=== PATIENT | female | born 1995 | race Caucasian/White ===

== ENCOUNTER 2018-07-22 10:34 | Outpatient (CLI) | payer BC ==
--- NOTE | 2018-07-22 11:40 | RAD ---
RIGHT FOOT 3 VIEWS: Date: 07/22/18 CLINICAL HISTORY: Foot pain after stepping wrong. Foot pain is more medial. FINDINGS: There are no signs of fracture or dislocation. IMPRESSION: Negative right foot. POS: TREVER
== END 2018-07-22 10:35 | disposition home or self-care (01) ==
LOC: SCSRAD 10:34
PROVIDERS: ATTEND Family Medicine
DX: M79.671 Pain in right foot (principal)

== ENCOUNTER 2018-09-14 23:21 | Inpatient (IN) | payer BC ==
[2018-09-14] MEDS ORDERED: cefTRIAXone\\ROCEPHIN 1 GM VIAL ONE (23:56)
[2018-09-15 00:19] LABS: Band 32 % (5-11); Hemoglobin 12.4 g/dL (12.0-16.0); Lymphocytes 3 % (21-51); MDiff Complete? YES; Mean Corpuscular HGB CONC 33.5 g/dL (32.0-36.0); Mean Corpuscular Hemoglobin 27.8 pg (27.0-31.0); Mean Platelet Volume 7.7 fL (7.4-10.4); Monocytes 5 % (0-10); Neutrophil 60 % (42-75); Platelet Count 227 thou/uL (130-400); Platelet Morphology Comment Appears Adequate; RBC Distribution Width 12.9 % (11.5-14.5); Red Blood Cell (RBC) Count 4.47 mill/uL (4.20-5.40); White Blood Cell (WBC) Count 18.9 thou/uL (4.8-10.8)
[2018-09-15 00:37] LABS: ALT (SGPT) 26 U/L (8-55); AST (SGOT) 18 U/L (5-34); Albumin 3.4 g/dL (3.5-5.0); Alkaline Phosphatase 166 U/L (40-150); Anion Gap 14 mmol/L (10-20); BUN (Urea Nitrogen) 11 mg/dL (7.0-18.7); Bilirubin, Total 1.1 mg/dL (0.2-1.2); Calc. Creatinine Clearance 0 mL/min (70-130); Calcium 9.2 mg/dL (7.8-10.44); Carbon Dioxide 21 mmol/L (22-29); Chloride 105 mmol/L (98-107); Estimated GFR-MDRD 89; Globulin 3.6 g/dL (2.4-3.5); Glucose 132 mg/dL (70-105); Potassium 3.2 mmol/L (3.5-5.1); Sodium 137 mmol/L (136-145)
[2018-09-15] MEDS ORDERED: Ketorolac Tromethamine 30 MG/ML VIAL ONE ×2 (00:50→14:34)
[2018-09-15 01:08] LABS: Bilirubin Small (Negative); Blood, Urine Large (Negative); Clarity CLEAR (Clear); Glucose, Urine (Dipstick) Negative (Negative); Leukocyte Small (Negative); Nitrite Negative (Negative); Protein, Urine (Dipstick) 100 mg/dL (Neg-Trace); Specific Gravity, Urine 1.031 (1.002-1.036)
[2018-09-15 01:09] LABS: Bacteria/HPF None Seen HPF (None Seen); Hyaline Casts/LPF 7-10 HYALINE CAST LPF (0-3 Hyaline); Pathc Cast-AUWi Flag 2.04 (0-2.49)
[2018-09-15 01:10] LABS: Oval Fat Bodies/HPF None Seen HPF (None Seen); Renal Epithelial None Seen HPF (0-3); Sperm/HPF None Seen HPF (None Seen); Transitional Epithelial NONE SEEN HPF (0-3); Trichomonas/HPF None Seen HPF (None Seen); Yeast-All Forms None Seen HPF (None Seen)
[2018-09-15] MEDS ORDERED: Ondansetron PF 4 MG/2 ML Vial IVP PRN ×2 (03:06→13:47)
[2018-09-15] MEDS ORDERED: Sodium Chloride 0.45% 1,000 ML IV SCH ×2 (03:06→07:53)
[2018-09-15] MEDS ORDERED: Ondansetron ODT 4 MG TAB SL PRN (03:06)
[2018-09-15] MEDS ORDERED: Morphine 4 MG/ML VIAL SLOW IVP PRN ×2 (03:10→13:47)
[2018-09-15 03:42] VITALS: BMI 47.5
[2018-09-15] MEDS ORDERED: Vancomycin HCl 1.5 GM in Sodium Chloride 0.9% 250 ML 300 ML IVPB SCH (09:00)
[2018-09-15] MEDS ORDERED: Vancomycin HCl 1 GM in Premix Bag 1 BAG IVPB SCH (09:00)
[2018-09-15] MEDS ORDERED: Fentanyl 100 MCG/2 ML VIAL ONE ×3 (10:20→12:08)
[2018-09-15] MEDS ORDERED: cefTRIAXone\\ROCEPHIN 1 GM in Sodium Chloride 0.9% 100 ML IVPB SCH (12:00)
[2018-09-15] MEDS ORDERED: Non-Formulary Medication 1 EACH PO PRN (13:37)
[2018-09-15] MEDS ORDERED: Ondansetron HCl/PF 4 MG/2 ML Vial IVP PRN (13:37)
[2018-09-15] MEDS ORDERED: Promethazine HCl 25 MG/ML VIAL IM/IV PRN (13:37)
[2018-09-15] MEDS ORDERED: Promethazine HCl 25 MG/ML VIAL IM PRN (13:47)
[2018-09-15] MEDS ORDERED: Dextrose 5% in Water 1,000 ML IV PRN (13:47)
[2018-09-15] MEDS ORDERED: Dextrose 50% Abboject 50 ML SYRINGE SLOW IVP PRN (13:47)
[2018-09-15] MEDS ORDERED: hydrALAZINE 20 MG/ML VIAL SLOW IVP PRN (13:47)
[2018-09-15] MEDS ORDERED: Piperacillin/Tazobactam 3.375 GM in Sodium Chloride 0.9% 100 ML IVPB SCH (14:00)
[2018-09-15] MEDS ORDERED: PROPOFOL 200 MG/20 ML VIAL ONE (14:34)
[2018-09-15] MEDS ORDERED: Lidocaine 1% PF 5 ML VIAL ONE (14:34)
[2018-09-15] MEDS: Vancomycin HCl 1.25 GM in Sodium Chloride 0.9% 250 ML 250 ML IVPB SCH (18:22)
[2018-09-15] MEDS: Famotidine/PF 20 mg/2ml Vial SLOW IVP SCH (21:00)
[2018-09-15] MEDS: Famotidine 20 MG TAB PO SCH (21:10)
[2018-09-15] MEDS: Escitalopram Oxalate 20 mg Tablet PO SCH (21:10)
[2018-09-15] MEDS: Piperacillin/Tazobactam 3.375 GM in Sodium Chloride 0.9% 100 ML IVPB SCH (22:37)
[2018-09-16] MEDS: Vancomycin HCl 1.25 GM in Sodium Chloride 0.9% 250 ML 250 ML IVPB SCH ×2 (02:56→13:04)
[2018-09-16] MEDS: Levothyroxine Sodium 50 MCG TAB PO SCH (05:09)
[2018-09-16] MEDS: Piperacillin/Tazobactam 3.375 GM in Sodium Chloride 0.9% 100 ML IVPB SCH ×4 (05:39→23:36)
[2018-09-16] MEDS: Famotidine 20 MG TAB PO SCH ×2 (08:02→20:35)
[2018-09-16] MEDS: Montelukast Sodium 10 mg Tablet PO SCH (08:04)
[2018-09-16 10:19] LABS: Anion Gap 11 mmol/L (10-20); BUN (Urea Nitrogen) 16 mg/dL (7.0-18.7); Calc. Creatinine Clearance 160 mL/min (70-130); Calcium 8.3 mg/dL (7.8-10.44); Carbon Dioxide 22 mmol/L (22-29); Chloride 108 mmol/L (98-107); Estimated GFR-MDRD 60; Glucose 107 mg/dL (70-105); Potassium 3.2 mmol/L (3.5-5.1); Sodium 138 mmol/L (136-145)
[2018-09-16 10:25] LABS: Vancomycin, Trough 25.6 ug/mL
[2018-09-16] MEDS: Famotidine/PF 20 mg/2ml Vial SLOW IVP SCH ×2 (10:28→19:38)
--- NOTE | 2018-09-16 11:06 | PDOC.GSPN ---
Surgery Progress Note: Subj - Subjective Patient reports: no new complaints Surgery Progress Note: Obj - Vital signs Vital signs: Vital Signs - Most Recent Temp Pulse Resp BP Pulse Ox 98.7 F 78 20 119/68 97 09/16/18 07:46 09/16/18 07:46 09/16/18 07:46 09/16/18 07:46 09/16/18 07:46 - Physical Exam General: no distress Cardiovascular: regular rate and rhythm Respiratory: clear to auscultation Wound: wound vac Surgery Progress Note: Results - Labs Result Diagrams: 09/14/18 23:51 09/16/18 09:42 Lab results: Laboratory Results - last 24 hr 09/16/18 09/16/18 09:42 09:42 Sodium 138 Potassium 3.2 L Chloride 108 H Carbon Dioxide 22 Anion Gap 11 BUN 16 Creatinine 1.14 H Estimated GFR (MDRD) 60 Glucose 107 H Calcium 8.3 Vancomycin Trough 25.6 Surgery Progress Note: A/P - Problem (1) Necrotizing cellulitis Current Visit: Yes Code(s): L03.90 - CELLULITIS, UNSPECIFIED Status: Acute Assessment and Plan: Arrange Home vac -vac change tomorrow
[2018-09-16 11:19] LABS: Band 20 % (5-11); Hemoglobin 10.4 g/dL (12.0-16.0); Lymphocytes 9 % (21-51); MDiff Complete? YES; Mean Corpuscular HGB CONC 32.7 g/dL (32.0-36.0); Mean Corpuscular Hemoglobin 27.2 pg (27.0-31.0); Mean Corpuscular Volume 83.1 fL (78.0-98.0); Mean Platelet Volume 7.9 fL (7.4-10.4); Monocytes 5 % (0-10); Neutrophil 66 % (42-75); Platelet Count 216 thou/uL (130-400); Polychromasia SLIGHT = 2-3 cells (100X) (0-2/hpf); RBC Distribution Width 13.3 % (11.5-14.5); Red Blood Cell (RBC) Count 3.84 mill/uL (4.20-5.40); White Blood Cell (WBC) Count 9.4 thou/uL (4.8-10.8)
[2018-09-16] MEDS: Vancomycin HCl 1.5 GM in Sodium Chloride 0.9% 250 ML 300 ML IVPB SCH (20:34)
[2018-09-16] MEDS: Escitalopram Oxalate 20 mg Tablet PO SCH (20:35)
[2018-09-16] MEDS: HYDROcodone/Acetaminophen 7.5/325 mg Tablet PO PRN (22:53)
[2018-09-17] MEDS: Piperacillin/Tazobactam 3.375 GM in Sodium Chloride 0.9% 100 ML IVPB SCH (05:40)
[2018-09-17] MEDS: Levothyroxine Sodium 50 MCG TAB PO SCH (05:40)
[2018-09-17 06:29] LABS: Anion Gap 10 mmol/L (10-20); BUN (Urea Nitrogen) 16 mg/dL (7.0-18.7); Calc. Creatinine Clearance 143 mL/min (70-130); Calcium 8.6 mg/dL (7.8-10.44); Carbon Dioxide 27 mmol/L (22-29); Chloride 108 mmol/L (98-107); Estimated GFR-MDRD 53; Glucose 107 mg/dL (70-105); Potassium 3.5 mmol/L (3.5-5.1); Sodium 141 mmol/L (136-145)
[2018-09-17] MEDS: Vancomycin HCl 1.5 GM in Sodium Chloride 0.9% 250 ML 300 ML IVPB SCH (08:58)
[2018-09-17] MEDS: Montelukast Sodium 10 mg Tablet PO SCH (08:58)
[2018-09-17] MEDS: Famotidine 20 MG TAB PO SCH ×2 (08:58→21:41)
[2018-09-17] MEDS: Famotidine/PF 20 mg/2ml Vial SLOW IVP SCH (08:59)
[2018-09-17] MEDS: Morphine 4 MG/ML VIAL SLOW IVP PRN (09:37)
[2018-09-17] MEDS: HYDROcodone/Acetaminophen 7.5/325 mg Tablet PO PRN ×2 (10:00→21:41)
--- NOTE | 2018-09-17 10:16 | PDOC.GSPN ---
Surgery Progress Note: Subj - Subjective Patient reports: no new complaints (Vac change pretty painful this am) Surgery Progress Note: Obj - Vital signs Vital signs: Vital Signs - Most Recent Temp Pulse Resp BP Pulse Ox 98.8 F 65 16 119/78 94 L 09/17/18 08:00 09/17/18 08:00 09/17/18 08:00 09/17/18 08:00 09/17/18 08:00 - Physical Exam General: no distress Wound: wound vac (change observe. No obvious purulence or necrosis in wound) Surgery Progress Note: Results - Labs Result Diagrams: 09/16/18 09:42 09/17/18 05:59 Lab results: Laboratory Results - last 24 hr 09/17/18 05:59 Sodium 141 Potassium 3.5 Chloride 108 H Carbon Dioxide 27 Anion Gap 10 BUN 16 Creatinine 1.27 H Estimated GFR (MDRD) 53 Glucose 107 H Calcium 8.6 Surgery Progress Note: A/P - Problem (1) Necrotizing cellulitis Current Visit: Yes Code(s): L03.90 - CELLULITIS, UNSPECIFIED Status: Acute - Plan Plan: Remain here for pain control until Saturday -Change to oral antibiotics
[2018-09-17] MEDS: Escitalopram Oxalate 20 mg Tablet PO SCH (21:40)
[2018-09-17] MEDS: Amoxicillin/Potassium Clav 875 MG TAB PO SCH (21:41)
[2018-09-18] MEDS: Levothyroxine Sodium 50 MCG TAB PO SCH (06:23)
--- NOTE | 2018-09-18 07:22 | OP ---
DATE OF PROCEDURE: 09/15/2018 PREOPERATIVE DIAGNOSES: Cellulitis, abscess, left thigh. POSTOPERATIVE DIAGNOSIS: Necrotizing infection, left thigh. PROCEDURE PERFORMED: Incision, drainage and debridement of 10 square cm of tissue to left thigh. ANESTHESIA: General. ESTIMATED BLOOD LOSS: Minimal. COMPLICATIONS: None. SPECIMEN: Cultures taken for culture and sensitivity. TECHNIQUE: The patient was taken to the operating room and laid supine on the operating room table. After general anesthetic was obtained, the left leg was prepped and draped in a sterile fashion where the previous I and D was. There was a second small bulla formation next to that. The ellipse of skin was taken out in between these two areas approximately 1 inch. This tunneled down to a deep large abscess collection. Purulence was found. Cultures were taken. The infection looked like it was tunneling down the more distal inner thigh, so the superficial opening was enlarged significantly in order to allow for packing of this deep wound. The wound was irrigated and wound VAC was placed in the OR. The patient will need wound VAC for this necrotizing infection to facilitate healing and prevent future OR debridement. Job ID: [id number]
--- NOTE | 2018-09-18 07:24 | HP ---
HISTORY OF PRESENT ILLNESS: This is a 22-year-old female who presented with a small abscess on her left upper inner thigh, was seen at [facility] where she had I and D and sent home on clindamycin. Her symptoms worsened. She developed significant more swelling, more pain and fevers up to 103 at home. She then presented to [facility] Emergency Room where she was admitted to my service overnight for IV antibiotics, started on IV Zosyn and vancomycin. PAST MEDICAL HISTORY: Negative. PAST SURGICAL HISTORY: Negative. MEDICATIONS: Taken daily include montelukast, levothyroxine, Lexapro. ALLERGIES: SULFA. SOCIAL HISTORY: No smoking, alcohol or other drugs. She is a student. REVIEW OF SYSTEMS: 10 system review of systems is otherwise negative as described above. PHYSICAL EXAMINATION: HEENT: Sclerae anicteric. Oropharynx clear. NECK: No lymphadenopathy. CHEST: Clear. HEART: Regular rate and rhythm. ABDOMEN: Soft, nontender. SKIN: Examination of her left thigh reveals there to be a large area of induration with obvious underlying purulence. The redness involves most of the medial thigh from knee to groin. It is exquisitely tender. ASSESSMENT: Infection, abscess, left thigh, status post inadequate I and D. PLAN: We will take to the operating room for I and D under general anesthetic. Risks, benefits, and alternatives were discussed. She gives consent. Job ID: [id number]
[2018-09-18] MEDS: Montelukast Sodium 10 mg Tablet PO SCH (09:34)
[2018-09-18] MEDS: Famotidine 20 MG TAB PO SCH ×2 (09:34→21:19)
[2018-09-18] MEDS: Amoxicillin/Potassium Clav 875 MG TAB PO SCH ×2 (09:34→21:19)
--- NOTE | 2018-09-18 13:27 | PDOC.GSPN ---
Surgery Progress Note: Subj - Subjective Patient reports: no new complaints Surgery Progress Note: Obj - Vital signs Vital signs: Vital Signs - Most Recent Temp Pulse Resp BP Pulse Ox 97.6 F 63 20 135/83 96 09/18/18 11:14 09/18/18 11:14 09/18/18 11:14 09/18/18 11:14 09/18/18 09:00 - Physical Exam General: no distress Cardiovascular: regular rate and rhythm Respiratory: clear to auscultation Abdomen: soft, non tender Wound: wound vac Surgery Progress Note: Results - Labs Result Diagrams: 09/16/18 09:42 09/17/18 05:59 Surgery Progress Note: A/P - Problem (1) Necrotizing cellulitis Current Visit: Yes Code(s): L03.90 - CELLULITIS, UNSPECIFIED Status: Acute - Plan Plan: Already on oral abx -home tomorrow after vac change
[2018-09-18] MEDS: Escitalopram Oxalate 20 mg Tablet PO SCH (21:19)
[2018-09-18] MEDS: HYDROcodone/Acetaminophen 7.5/325 mg Tablet PO PRN (21:19)
[2018-09-19] MEDS: Levothyroxine Sodium 50 MCG TAB PO SCH (05:56)
--- NOTE | 2018-09-19 08:07 | PQF ---
AMIRAH ROJAS BRYAN DAVID MD [id number] [facility] [id number] CLINICAL DOCUMENTATION IMPROVEMENT CLARIFICATION FORM: ICD-10 Updated PLEASE DO AN ADDENDUM TO THE PROGRESS NOTE WITH ANY DOCUMENTATION UPDATES OR ADDITIONS AND CARRY THROUGH TO DC SUMMARY. THANK YOU. DATE: 09/19 ATTN: DR. ERIN HUTCHISON Please exercise your independent, professional judgment in responding to the clarification form. Clinical indicators are provided on the bottom of this form for your review. Please check appropriate box(es): [ ] Sepsis due to: (Pna, UTI, gangrenous gall bladder, etc.) [ ] Localized infection without sepsis [ ] Other diagnosis [ ] Unable to determine In addition, please specify: Present on Admission (POA): [ ] Yes [ ] No [ ] Unable to determine For continuity of documentation, please document condition throughout progress notes and discharge summary. Thank You. ER PRESENTATION 09/15: FEVER W/ABSCESS HR: 104 SEPSIS ALERT PT STATES FEVER 102.8 LABS: WBC 18.9, BANDS 32% (09/15) L LEG ABSCESS CX: ALPHA-HEMOLYTIC STREPTOCOCCUS PHYSICIAN H&P 09/15: HX OF PRESENT ILLNESS: ...PRESENTED WITH A SMALL ABSCESS ON HER L UPPER INNER THIGH, WAS SEEN AT [facility] WHERE SHE HAD I&D & SENT HOME ON CLINDAMYCIN. SHE DEVELOPED SIGNIFICANT MORE SWELLING, MORE PAIN & FEVERS UP TO 103 AT HOME. ASSESSMENT: INFECTION, ABSCESS, L THIGH, S/P INADEQUATE I&D OPERATIVE REPORT 09/15: POSTOP DIAGNOSIS: NECROTIZING INFECTION, L THIGH RISKS: NECROTIZING INFECTION, L THIGH (ALPHA-HEMOLYTIC STREPTOCOCCUS) TREATMENT: INCISION, DRAINAGE & DEBRIDEMENT (09/15) IV ANTIBIOTICS (VANCOMYCIN & ZOSYN 09/15 - ; ROCEPHIN 09/15 IN ER) PO ANTIBIOTIC (AUGMENTIN 09/17 - PRESENT) THANK YOU! Estefany (This form is maintained as a part of the permanent medical record) 2014 [employer]. All Rights Reserved Estefany Brar RN, BSN [email or web address] Office: [phone] [facility]
--- NOTE | 2018-09-19 08:13 | PQF ---
AMIRAH ROJAS BRYAN DAVID MD [id number] [address] [place] [address] [id number] CLINICAL DOCUMENTATION IMPROVEMENT CLARIFICATION FORM: ICD-10 Updated PLEASE DO AN ADDENDUM TO THE PROGRESS NOTE WITH ANY DOCUMENTATION UPDATES OR ADDITIONS AND CARRY THROUGH TO DC SUMMARY. THANK YOU. DATE: 09/19 ATTN: DR. MILY HUTCHISON Please exercise your independent, professional judgment in responding to the clarification form. Clinical indicators are provided on the bottom of this form for your review. Please check appropriate box(s): [ ] Excisional Debridement: [ ] Excised [ ] Cut away [ ] Other: Depth / layer: (deepest layer of debridement): [ ] Skin [ ] SubQ Tissue [ ] Fascia [ ] Muscle [ ] Tendon [ ] Bone Appearance of wound: (e.g., down to fresh bleeding tissue, etc.)___ Margins: (please specify): / x x Instruments used: [ ] Scissors [ ] Scalpel [ ] Curette [ ] Soft tissue clipper [ ] Other: [ ] Non-excisional Debridement: (Removal by flushing, brushing, chemical, or washing) Depth / layer: (deepest layer of debridement): [ ] Skin[ ] Subcutaneous [ ] Fascia [ ] Muscle [ ] Tendon [ ] Bone [ ] Incision and Drainage only (No Debridement): Depth:[ ] Skin [ ] Subcutaneous [ ] Fascia [ ] Muscle [ ] Tendon [ ] Bone [ ] Other procedure diagnosis [ ] Unable to determine For continuity of documentation, please document condition throughout progress notes and discharge summary. Thank You. CLINICAL INDICATORS - SIGNS / SYMPTOMS / LABS OPERATIVE REPORT 09/15: INCISION, DRAINAGE & DEBRIDEMENT OF 10 SQUARE CM OF TISSUE TO LEFT THIGH: "THE ELLIPSE OF SKIN WAS TAKEN OUT IN BETWEEN THESE TWO AREAS APPROXIMATELY 1 INCH. THIS TUNNELED DOWN TO A DEEP LARGE ABSCESS COLLECTION. PURULENCE WAS FOUND. CULTURES WERE TAKEN. THE INFECTION LOOKED LIKE IT WAS TUNNELING DOWN THE MORE DISTAL INNER THIGH, SO THE SUPERFICIAL OPENING WAS ENLARGED SIGNIFICANTLY IN ORDER TO ALLOW FOR PACKING OF THIS DEEP WOUND." RISK: NECROTIZING INFECTION, L THIGH TREATMENT: IV ANTIBIOTICS (VANCOMYCIN & ZOSYN 09/15 - ; ROCEPHIN 09/15 IN ER) PO ANTIBIOTIC (AUGMENTIN 09/17 - PRESENT) INCISION, DRAINAGE & DEBRIDEMENT (09/15) WOUND VAC THANK YOU! Estefany (This form is maintained as a part of the permanent medical record) 2014 [email or web address]. All Rights Reserved Estefany Brar RN, BSN [email or web address] Office: [phone] [facility]ITAL[facility]awn[facility]
[2018-09-19] MEDS: Amoxicillin/Potassium Clav 875 MG TAB PO SCH (08:40)
[2018-09-19] MEDS: Famotidine 20 MG TAB PO SCH (08:40)
[2018-09-19] MEDS: Montelukast Sodium 10 mg Tablet PO SCH (08:41)
[2018-09-19] MEDS: HYDROcodone/Acetaminophen 7.5/325 mg Tablet PO PRN (10:34)
[2018-09-19] MEDS: Morphine 4 MG/ML VIAL SLOW IVP PRN (10:54)
--- NOTE | 2018-09-19 12:56 | DIS ---
DATE OF ADMISSION: 09/15/2018 DATE OF DISCHARGE: 09/19/2018 HOSPITAL COURSE: Ms. Fernando Perea is seen on dressing change this morning. Her wound is much improved and there is no residual necrotic tissue. The surrounding erythema is much improved as well. She is afebrile. Vital signs are stable. She has streptococcus grew out of her cultures that is pansensitive. ASSESSMENT: Necrotizing infection, left thigh. DISCUSSION: Home with wound VAC. On oral Levaquin. I sent over hydrocodone with Tylenol to the [facility] on as well. The patient will return and see me in a few weeks. CONDITION ON DISCHARGE: Improved. STAFF: Yobany Gaitan MD ADMITTING DIAGNOSIS: Necrotizing cellulitis. DISCHARGE DIAGNOSIS: Necrotizing cellulitis. Job ID: [id number]
[2018-09-19 13:56] VITALS: BP 137/72; TEMP 98.4
== END 2018-09-19 14:29 | disposition home or self-care (01) | DRG 571 ==
LOC: ERS 23:21 → OBSVTOIN 09-15 01:46 → 3SE 09-15 01:46
PROVIDERS: ADMIT Surgery; ATTEND Surgery
PROC: 0J9M0ZZ Drainage of Left Upper Leg Subcutaneous Tissue and Fascia, Open Approach (ICD-10-PCS; principal; 2018-09-15)
PROC: 0JBM0ZZ Excision of Left Upper Leg Subcutaneous Tissue and Fascia, Open Approach (ICD-10-PCS; 2018-09-15)
DX: L02.416 Cutaneous abscess of left lower limb (principal); Z68.42 Body mass index [BMI] 45.0-49.9, adult; E03.9 Hypothyroidism, unspecified; E66.01 Morbid (severe) obesity due to excess calories; F41.9 Anxiety disorder, unspecified; B95.5 Unspecified streptococcus as the cause of diseases classified elsewhere; Z88.2 Allergy status to sulfonamides
CPT/HCPCS: 36415; 80048; 80053; 80202; 81003; 81015; 83605; 85025; 87040; 87070; 87186; 87205; 96361; 96365; 96375; J0696; J1885; J2001; J2270; J2405; J2543; J2704; J3010; J3370; J7050

== ENCOUNTER 2018-09-22 15:22 | Outpatient (CLI) | payer BC ==
[2018-09-22] MEDS ORDERED: Sodium Chloride 0.9% 15 ML NEB ONE (18:00)
== END 2018-09-22 15:23 | disposition home or self-care (01) ==
LOC: WCC 15:22
PROVIDERS: ATTEND Family Medicine
DX: L03.116 Cellulitis of left lower limb (principal)
CPT/HCPCS: A4218

== ENCOUNTER 2018-09-25 15:35 | Outpatient (CLI) | payer BC ==
--- NOTE | 2018-09-25 11:25 | HP ---
HISTORY OF PRESENT ILLNESS: Ms. 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 Yobany Gaitan. Negative pressure therapy was initiated intraoperatively and upon discharge from [facility], the patient was referred to the Wound Center for assistance with dressing changes of the wound VAC. The patient was discharged to home on p.o. Levaquin, which she has been taking as prescribed. PAST MEDICAL HISTORY: 1. Hypothyroidism. 2. Seasonal allergies. PAST SURGICAL HISTORY: 1. Incision, drainage, and debridement of necrotizing infection of left thigh on 09/15/2018. 2. Left elbow surgery. 3. Right hip surgery. MEDICATIONS: 1. Levothyroxine. 2. Montelukast. 3. Escitalopram. 4. Vitamin D. 5. Levaquin. ALLERGIES: SULFA. SOCIAL HISTORY: Social history is negative for tobacco use. The patient admits to only the occasional consumption of alcohol. FAMILY HISTORY: Family history is significant for diabetes mellitus. The patient states that her aunt was diagnosed with diabetes mellitus. Family history is also significant for coronary artery disease. The patient states that her great grandmother was diagnosed with coronary artery disease. PHYSICAL EXAMINATION: VITAL SIGNS: Temperature 97.6, pulse 75, respirations 20, blood pressure 113/63. GENERAL: A 22-year-old female sitting on chair in examination room, in no acute distress. HEENT: Normocephalic, atraumatic. NECK: No nuchal rigidity. CHEST: Clear to auscultation. CV: Regular rate and rhythm. ABDOMEN: Soft. EXTREMITIES: A wound of the left medial thigh is present, which measures approximately 7.0 x 2.5 cm. Granulation tissue is present within the wound margins. Nonviable tissue present within the wound margins was debrided with an excisional full-thickness debridement. No purulent drainage is associated with the wound. No cellulitis of the left medial thigh is appreciated. No maceration of the skin of the periwound is noted. NEUROLOGIC: Grossly nonfocal. ASSESSMENT AND PLAN: 1. Wound of left medial thigh as described above. Negative pressure therapy will be continued with dressing changes of the wound VAC here in the Wound Center. The patient will be seen by Dr. Gaitan in 1 week. I will see Ms. Perea again in 2 weeks. The patient has been reminded to continue p.o. Levaquin as prescribed at the time of discharge. The patient and her mother understand and are in agreement with the preceding treatment plan. 2. Hypothyroidism. 3. Seasonal allergies. Job ID: [id number]
[2018-09-25] MEDS ORDERED: Sodium Chloride 0.9% 15 ML NEB ONE (18:00)
[2018-09-25] MEDS ORDERED: Lidocaine 4% Topical Sol 50 ML BOT ONE (18:00)
== END 2018-09-25 15:36 | disposition home or self-care (01) ==
LOC: WCC 15:35
PROVIDERS: ATTEND Family Medicine
DX: T81.89XD Other complications of procedures, not elsewhere classified, subsequent encounter (principal); E03.9 Hypothyroidism, unspecified; J30.2 Other seasonal allergic rhinitis
CPT/HCPCS: A4218

== ENCOUNTER 2018-09-30 15:58 | Outpatient (CLI) | payer BC ==
[2018-09-30] MEDS ORDERED: Sodium Chloride 0.9% 15 ML NEB ONE (18:00)
== END 2018-09-30 15:59 | disposition home or self-care (01) ==
LOC: WCC 15:58
PROVIDERS: ATTEND Family Medicine
DX: T81.89XD Other complications of procedures, not elsewhere classified, subsequent encounter (principal)
CPT/HCPCS: 97605; A4218

== ENCOUNTER 2018-10-03 14:43 | Outpatient (CLI) | payer BC ==
[2018-10-03] MEDS ORDERED: Lidocaine 4% Topical Sol 50 ML BOT ONE (21:34)
[2018-10-03] MEDS ORDERED: Sodium Chloride 0.9% 15 ML NEB ONE (21:34)
== END 2018-10-03 14:44 | disposition home or self-care (01) ==
LOC: WCC 14:43
PROVIDERS: ATTEND Family Medicine
DX: T81.89XD Other complications of procedures, not elsewhere classified, subsequent encounter (principal)
CPT/HCPCS: 97605; A4218

== ENCOUNTER 2018-10-06 15:35 | Outpatient (CLI) | payer BC ==
--- NOTE | 2018-10-06 17:08 | PRG ---
DATE OF SERVICE: 10/06/2018 HISTORY: Ms. 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 Yobany Gaitan. Negative pressure therapy was initiated intraoperatively and upon discharge from [facility], the patient was referred to the Wound Center for assistance with dressing changes of the wound VAC. The patient was discharged to home on p.o. Levaquin. PHYSICAL EXAMINATION: VITAL SIGNS: Temperature 97.5, pulse 89, and blood pressure 132/74. EXTREMITIES: A wound of the left medial thigh is present, which measures approximately 1.8 x 7.3 cm. The depth of the wound is approximately 4 cm. Granulation tissue is present within the wound margins. Nonviable tissue present within the wound margins was debrided with an excisional full-thickness debridement. No purulent drainage is associated with the wound. No cellulitis of the left medial thigh is appreciated. No maceration of the skin of the periwound is noted. ASSESSMENT AND PLAN: 1. Wound of left medial thigh as described above. Negative pressure therapy will be continued with dressing changes of the wound VAC here in the Wound Center. The patient will be seen by Dr. Gaitan in 1 week. I will see Ms. Perea again in 2 weeks. 2. Hypothyroidism. 3. Seasonal allergies. Job ID: [id number]
[2018-10-06] MEDS ORDERED: Sodium Chloride 0.9% 15 ML NEB ONE (21:48)
[2018-10-06] MEDS ORDERED: Lidocaine 4% Topical Sol 50 ML BOT ONE (21:48)
== END 2018-10-06 15:36 | disposition home or self-care (01) ==
LOC: WCC 15:35
PROVIDERS: ATTEND Family Medicine
DX: T81.89XD Other complications of procedures, not elsewhere classified, subsequent encounter (principal); E03.9 Hypothyroidism, unspecified; J30.2 Other seasonal allergic rhinitis
CPT/HCPCS: 11042; A4218

== ENCOUNTER 2018-10-09 15:16 | Outpatient (CLI) | payer BC ==
[2018-10-09] MEDS ORDERED: Lidocaine 4% Topical Sol 50 ML BOT ONE (17:24)
[2018-10-09] MEDS ORDERED: Sodium Chloride 0.9% 15 ML NEB ONE (17:24)
== END 2018-10-09 15:17 | disposition home or self-care (01) ==
LOC: WCC 15:16
PROVIDERS: ATTEND Family Medicine
DX: T81.89XD Other complications of procedures, not elsewhere classified, subsequent encounter (principal)
CPT/HCPCS: 97605; A4218

== ENCOUNTER 2018-10-13 15:30 | Outpatient (CLI) | payer BC | END 2018-10-13 15:31 | disposition home or self-care (01) | LOC: WCC 15:30 | PROVIDERS: ATTEND Family Medicine | DX: T81.89XD Other complications of procedures, not elsewhere classified, subsequent encounter (principal) | CPT/HCPCS: 97605 ==

== ENCOUNTER 2018-10-16 14:25 | Outpatient (CLI) | payer BC ==
[2018-10-16] MEDS ORDERED: Sodium Chloride 0.9% 15 ML NEB ONE (16:23)
[2018-10-16] MEDS ORDERED: Lidocaine 2% 11 ML SYR ONE (16:28)
== END 2018-10-16 14:26 | disposition home or self-care (01) ==
LOC: WCC 14:25
PROVIDERS: ATTEND Family Medicine
DX: T81.89XD Other complications of procedures, not elsewhere classified, subsequent encounter (principal)
CPT/HCPCS: 97605; A4218

== ENCOUNTER 2020-04-16 10:32 | Emergency (ER) | payer OTHER ==
[2020-04-16] MEDS ORDERED: Dexamethasone 10 MG/ML VIAL ONE (11:03)
--- NOTE | 2020-04-16 11:39 | RAD ---
XR Chest 1 View Portable History: Dyspnea Comparison: None. Findings: Lungs are clear. No pneumothorax or effusion. Cardiac silhouette and mediastinal contours a re within normal limits. No acute osseous abnormality. Impression: No acute intrathoracic abnormality.
[2020-04-16 11:44] LABS: #Basophils 0.1 thou/uL (0.0-0.2); #Monocytes 0.4 thou/uL (0.11-0.59); #Neutrophils 4.2 thou/uL (1.40-6.50); %Eosinophils 0.7 % (0.0-10.0); %Lymphocytes 29.3 % (21.0-51.0); %Monocytes 6.1 % (0.0-10.0); %Neutrophils 62.9 % (42.0-75.0); Hemoglobin 15.5 g/dL (12.0-16.0); Mean Corpuscular HGB CONC 33.9 g/dL (32.0-36.0); Mean Corpuscular Hemoglobin 27.2 pg (27.0-31.0); Mean Corpuscular Volume 80.4 fL (78.0-98.0); Mean Platelet Volume 7.6 fL (7.4-10.4); Platelet Count 311 thou/uL (130-400); RBC Distribution Width 12.5 % (11.5-14.5); Red Blood Cell (RBC) Count 5.71 mill/uL (4.20-5.40); White Blood Cell (WBC) Count 6.7 thou/uL (4.8-10.8)
[2020-04-16 12:01] LABS: ALT (SGPT) 24 U/L (8-55); AST (SGOT) 20 U/L (5-34); Albumin 4.4 g/dL (3.5-5.0); Alkaline Phosphatase 98 U/L (40-110); Anion Gap 15 mmol/L (10-20); BUN (Urea Nitrogen) 12 mg/dL (7.0-18.7); Bilirubin, Total 0.3 mg/dL (0.2-1.2); CK (CPK) 50 U/L (29-168); Calc. Creatinine Clearance 0 mL/min (70-130); Calcium 9.3 mg/dL (7.8-10.44); Carbon Dioxide 21 mmol/L (22-29); Chloride 106 mmol/L (98-107); Estimated GFR-MDRD Greater than 90; Globulin 3.7 g/dL (2.4-3.5); Glucose 98 mg/dL (70-105); Lipase 16 U/L (8-78); Potassium 4.5 mmol/L (3.5-5.1); Protein, Total 8.1 g/dL (6.0-8.3); Sodium 137 mmol/L (136-145)
== END 2020-04-16 13:04 | disposition home or self-care (01) ==
LOC: ERS 10:32
DX: U07.1 COVID-19 (principal); E03.9 Hypothyroidism, unspecified; J45.909 Unspecified asthma, uncomplicated; F41.9 Anxiety disorder, unspecified; Z79.899 Other long term (current) drug therapy
CPT/HCPCS: 36415; 71045; 80053; 82550; 83690; 84484; 85025; 85379; 93005; 96374; J1100

== ENCOUNTER 2024-04-09 14:22 | Outpatient (CLI) | payer OTHER | END 2024-04-09 14:23 | disposition home or self-care (01) | LOC: SCSRAD 14:22 | PROVIDERS: ATTEND Family Medicine | DX: M54.2 Cervicalgia (principal) | CPT/HCPCS: 72040 ==